=== PATIENT | female | born 1945 | race Caucasian/White ===

== ENCOUNTER 2017-07-02 10:04 | Outpatient (CLI) | payer MEDICARE, OTHER ==
--- NOTE | 2017-07-02 12:53 | RAD ---
EXAM: LUMBAR SPINE 4 VIEWS: HISTORY: Lumbar radiculopathy. Progressively worsening pain and right leg numbness. FINDINGS: There are 5 lumbar-type vertebral bodies. In the neutral position, no significant spondylolisthesis . No abnormal translational motion upon extension or flexion. There are mild degenerative changes of the posterior elements at L4-L5 and L5-S1. Osteophyte formation in the distal thoracic spine is identified. Atherosclerosis of the aorta is noted. IMPRESSION: Degenerative changes of lumbar spine as above. POS: EVERARDO
[2017-07-02] MEDS ORDERED: Gadobenate Dimeglumine 529 MG/1 ML (20ML VIAL) ONE (13:36)
--- NOTE | 2017-07-02 15:00 | MRI ---
EXAM: MRI LUMBAR SPINE WITH AND WITHOUT CONTRAST: HISTORY: Right leg numbness. Progressively worsening the past year. History of previous back surgery. COMPARISON: MRI lumbar spine 03/26/12. TECHNIQUE: MRI lumbar spine is performed with and without intravenous Gadolinium administration. Multisequenti al, multiplanar imaging is performed. FINDINGS: There is appropriate T1 marrow signal intensity of the lumbar vertebrae. Lumbar spine vertebral bod y height is maintained. There is no abnormal enhancement. There is no significant STIR hyperintens ity to suggest vertebral body or ligamentous injury. There is a T2 hyperintensity emanating from the left renal cortex, compatible with a cyst. Remainin g visualized solid organs and retroperitoneal structures are unremarkable. Conus medullaris termina klaus at the superior aspect of L1. On the postcontrast images, there is no abnormal enhancement within the thecal sac. The cauda equin a and conus medullaris have a normal appearance. T12-L1: Adequate disk hydration. No significant central canal stenosis. Neural foramen are patent . L1-L2: Adequate disk hydration. No significant central canal stenosis. Neural foramen are patent. L2-L3: Disk desiccation with mild loss of disk space height. Generalized disk bulge, ligamentum fl avum thickening, and facet hypertrophy result in mild central canal stenosis. Mild to moderate narr owing of the left subarticular zone with partial obscuration of the traversing left L3 nerve root. There appears to be postsurgical change with partial removal of the right facet. There is associate d minimal scar tissue. There is no high-grade stenosis of the thecal sac. Moderate to severe right and mild to moderate left neural foraminal narrowing. L3-L4: Disk desiccation with mild loss of disk space height. Generalized disk bulge, ligamentum fl avum thickening, and facet hypertrophy result in mild central canal stenosis. Moderate narrowing of both subarticular zones due to posterior element hypertrophy and disk material. Partial obscuratio n of bilateral traversing L4 nerve roots. Mild to moderate right and mild left foraminal narrowing. L4-:5: Disk desiccation with mild loss of disk space height. Generalized disk bulge, ligamentum fl avum thickening, and facet hypertrophy result in moderate central canal stenosis. Narrowing of both subarticular zones with partial obscuration of bilateral traversing L5 nerve roots. Moderate right and severe left foraminal narrowing. L5-S1: No significant central canal stenosis. Right neural foramen is patent. Mild to moderate le ft foraminal narrowing. IMPRESSION: 1. Degenerative change of the lumbar spine as above. 2. Postsurgical changes as above. POS: EVERARDO
== END 2017-07-02 10:05 | disposition home or self-care (01) ==
LOC: TBSIIMAG 10:04
PROVIDERS: ATTEND Surgery
DX: M47.26 Other spondylosis with radiculopathy, lumbar region (principal); Z98.890 Other specified postprocedural states
CPT/HCPCS: 72110; 72158; A9579

== ENCOUNTER 2018-03-24 12:11 | Outpatient (CLI) | payer MEDICARE, OTHER | END 2018-03-24 12:12 | disposition home or self-care (01) | LOC: BICMAMMO 12:11 | PROVIDERS: ATTEND Family Medicine | DX: Z12.31 Encounter for screening mammogram for malignant neoplasm of breast (principal) | CPT/HCPCS: 77063; 77067 ==

== ENCOUNTER 2018-09-25 09:17 | Outpatient (CLI) | payer MEDICARE, OTHER ==
--- NOTE | 2018-09-25 11:20 | BD ---
DEXA BONE DENSITOMETRY: (Dual energy X-ray Absorptiometry) DATE: 09/25/18 HISTORY: 73-year-old postmenopausal white female for follow-up age-related osteoporosis screening examination. Height: 63 Weight: 160 lbs Age of menopause: 55 years COMPARISON: 03/06/2016. FINDINGS: Bone mineral density (BMD) is given in grams per square centimeter (g/cm2): LUMBAR SPINE: BMD(g/cm2) T-score Z-score L1: 0.978 -0.1 1.9 L2: 0.995 -0.3 2.0 L3: 1.045 -0.4 2.0 L4: 1.089 0.3 2.7 Total: 1.026 -0.2 2.1 Change in BMD compared to previous DEXA: -6.0% HIP: Femoral neck: 0.515 -3.0 -1.0 Total: 0.724 -1.8 -0.1 Change in BMD compared to previous DEXA: -7.1% IMPRESSION: 1. The mean bone mineral density of the lumbar spine is normal. Fracture risk is not increased. 2. The bone mineral density of the femoral neck is osteoporotic. Fracture risk is high. JN Romulo POS: TPC
== END 2018-09-25 09:18 | disposition home or self-care (01) ==
LOC: BICMAMMO 09:17
PROVIDERS: ATTEND Family Medicine
DX: Z78.0 Asymptomatic menopausal state (principal); M81.0 Age-related osteoporosis without current pathological fracture
CPT/HCPCS: 77080

== ENCOUNTER 2019-02-03 13:39 | Outpatient (CLI) | payer MEDICARE, OTHER ==
[~2019-02-03 13:39] MED LIST: Gadobenate Dimeglumine 529 MG/1 ML (20ML VIAL) ONE
--- NOTE | 2019-02-03 14:24 | RAD ---
EXAM: XR Lumbar Spine Min 4 View PROVIDED CLINICAL HISTORY: Lumbar radiculopathy. Patient with low back pain with pain radiating down right lower extremity with associated numbness. COMPARISON: 07/02/2017 FINDINGS: 5 nonrib-bearing lumbar-type vertebral bodies are again seen. The vertebral body heights are within n ormal limits. No fracture or subluxation is appreciated. Multilevel osteophytes are again seen. No abnormal translational motion is seen between the flexion and extension views lumbar spine. Facet deg enerative changes are present. Vascular calcifications are again seen in the abdominal aorta and iliac arteries. IMPRESSION: Multilevel degenerative changes without fracture visualized. Views of the lumbar spine are stable com pared to study in 2017.
--- NOTE | 2019-02-03 15:24 | MRI ---
MRI lumbar spine with and without contrast: DATE: 02/03/2019 HISTORY: 73-year-old female with lumbar radiculopathy and chronic low back pain. COMPARISON: 07/02/2017 FINDINGS: 5 lumbar-type vertebrae. Vertebral body heights are maintained. No major spondylolisthesis. No major bone marrow signal abnormality. No abnormal, unexpected enhancement.. T12-L1:Minimal disc bulge. Otherwise negative. L1-2:Conus medullaris terminates at this level. Essentially normal. L2-3:Moderate disc space narrowing. Diffuse disc bulge. Superimposed right paracentral small focal di sc herniation. Mild to moderate degenerative facet changes. Right partial facetectomy moderate central spinal canal stenosis. Mild to moderate left neural foraminal stenosis. Nerve root cyst in th e right neural foramen contributes to moderate right neural foraminal stenosis. No interval change. L3-4:Moderate bilateral facet DJD. Moderate disc space narrowing. Prominent diffuse disc bulge. Moder ate bilateral neural foraminal stenosis. Lateral recess stenosis bilaterally. Mild to moderate central stenosis. No major interval change. L4-5:Mild to moderate disc space narrowing. Severe bilateral facet DJD. Prominent diffuse disc bulge. Severe left neural foraminal stenosis with chronic impingement on exiting left L4 nerve root. Mild to moderate right neural foraminal stenosis. Severe lateral recess stenosis bilaterally, left greater than right. Moderate ligamentum flavum thickening. Superimposed on the diffuse prominent disc bulge, there was previously a prominent central component of disc bulge or disc herniation. That cent ral component has regressed, resulting in interval improvement in the degree of central spinal canal stenosis, now moderate. L5-S1:Mild disc space narrowing. Minimal grade 1 anterolisthesis of L5 on S1. Mild disc bulge. No kathy tral stenosis. No right neural foraminal stenosis. Moderate left neural foraminal stenosis with the formation of exiting left L5 nerve root. Severe left facet DJD and moderate right facet DJD. No inter sia change. IMPRESSION: 1) lumbar spondylosis with facet osteoarthrosis of varying degrees, including severe, and degenerativ e disc disease of varying degrees, including moderate. 2) the lateral interval change since 07/02/2017 is the fact that the central component of disc bulge or disc herniation at L4-5 has regressed, resulting in interval improvement in the previously demonstrated high-grade central spinal canal stenosis at that level. 3) however, the severe lateral recess stenosis bilaterally, and severe left neural foraminal stenosis , remain unchanged at the L4-5 level. 4) lateral recess stenosis bilaterally at L3-4.
== END 2019-02-03 13:40 | disposition home or self-care (01) ==
LOC: SCSMRI 13:39
PROVIDERS: ATTEND Physician Assistant Surgical
DX: M47.26 Other spondylosis with radiculopathy, lumbar region (principal); M51.16 Intervertebral disc disorders with radiculopathy, lumbar region; M48.061 Spinal stenosis, lumbar region without neurogenic claudication
CPT/HCPCS: 72110; 72158; 82565; A9577

== ENCOUNTER 2019-02-24 00:46 | Outpatient (CLI) | payer MEDICARE, OTHER ==
[2019-02-24 13:38] LABS: PTT 28.2 SEC (22.9-36.1); Prothrombin Time 13.1 SEC (12.0-14.7)
[2019-02-24 14:00] LABS: Band 2 % (5-11); Hemoglobin 14.7 g/dL (12.0-16.0); Lymphocytes 32 % (21-51); MDiff Complete? YES; Mean Corpuscular HGB CONC 33.6 g/dL (32.0-36.0); Mean Corpuscular Hemoglobin 32.3 pg (27.0-31.0); Mean Corpuscular Volume 96.1 fL (78.0-98.0); Mean Platelet Volume 8.4 fL (7.4-10.4); Monocytes 9 % (0-10); Neutrophil 57 % (42-75); Platelet Count 189 thou/uL (130-400); RBC Distribution Width 12.3 % (11.5-14.5); RBC Morphology Normal; Red Blood Cell (RBC) Count 4.55 mill/uL (4.20-5.40); White Blood Cell (WBC) Count 7.2 thou/uL (4.8-10.8)
--- NOTE | 2019-02-26 21:17 | EKG ---
Test Reason : Blood Pressure : / mmHG Vent. Rate : 050 BPM Atrial Rate : 050 BPM P-R Int : 220 ms QRS Dur : 084 ms QT Int : 474 ms P-R-T Axes : 074 052 045 degrees QTc Int : 432 ms Sinus bradycardia with 1st degree A-V block Low voltage QRS Nonspecific ST and T wave abnormality Abnormal ECG When compared with ECG of 22-MAY-2016 10:00, NE interval has increased Nonspecific T wave abnormality, improved in Inferior leads Nonspecific T wave abnormality, improved in Lateral leads Confirmed by Heraclio ACOSTA ([id number]) on 02/26/2019 9:16:39 PM Referred By: NANCY Confirmed By:Heraclio ACOSTA
== END 2019-02-24 00:47 | disposition home or self-care (01) ==
LOC: LABBT 00:46
PROVIDERS: ATTEND Surgery
DX: Z01.818 Encounter for other preprocedural examination (principal); M54.16 Radiculopathy, lumbar region; M48.061 Spinal stenosis, lumbar region without neurogenic claudication
CPT/HCPCS: 85007; 85027; 85610; 85730; 93005; 93010

== ENCOUNTER 2019-03-02 05:39 | Day surgery (SDC) | payer MEDICARE, OTHER ==
[2019-02-24 12:48] VITALS: BMI 27.6
[2019-03-02] MEDS ORDERED: Sodium Chloride 0.9% 10 ML ONE (06:28)
[2019-03-02] MEDS ORDERED: Thrombin 5000 UNITS/5 ML VIAL ONE (06:28)
[2019-03-02] MEDS ORDERED: Fentanyl 100 MCG/2 ML VIAL ONE ×4 (06:54→11:30)
[2019-03-02] MEDS ORDERED: HYDROmorphone 2 MG/ML VIAL SLOW IVP PRN (09:24)
[2019-03-02] MEDS ORDERED: Ondansetron HCl/PF 4 MG/2 ML Vial IVP PRN (09:24)
[2019-03-02] MEDS ORDERED: Meperidine HCl/PF 25 MG/ML VIAL SLOW IVP PRN (09:24)
[2019-03-02] MEDS ORDERED: Morphine Sulfate 2 MG/ML SYRINGE SLOW IVP PRN (09:24)
[2019-03-02] MEDS ORDERED: Promethazine HCl 25 MG/ML VIAL IM PRN (09:24)
[2019-03-02] MEDS ORDERED: PACU-Morphine 4MG/ML VIAL SLOW IVP PRN (09:24)
[2019-03-02] MEDS ORDERED: Promethazine HCl 25 MG/ML VIAL SLOW IVP PRN (09:24)
[2019-03-02] MEDS ORDERED: Acetaminophen 325 MG TAB PO PRN (10:33)
[2019-03-02] MEDS ORDERED: Bisacodyl 10 MG SUPP PR PRN (10:33)
[2019-03-02] MEDS ORDERED: Acetaminophen/Codeine 30-300mg Tablet PO PRN (10:33)
[2019-03-02] MEDS ORDERED: Promethazine HCl 25 MG/ML VIAL IM/IV PRN (10:33)
[2019-03-02] MEDS ORDERED: Fleet Enema 133 ML BOT PR PRN (10:33)
[2019-03-02] MEDS ORDERED: Mag-Al 1200 mg/1200 mg/30 ML UDCUP PO PRN (10:33)
[2019-03-02] MEDS ORDERED: Milk Of Magnesia 30 ML UDCUP PO PRN (10:33)
[2019-03-02] MEDS ORDERED: HYDROcodone/Acetaminophen 7.5/325 mg Tablet PO PRN (10:33)
[2019-03-02] MEDS ORDERED: CEFAZOLIN 2 GM in Premix Bag 1 BAG IVPB SCH (10:45)
--- NOTE | 2019-03-02 12:12 | OP ---
DATE OF PROCEDURE: 03/02/2019 LOCATION: OR 12. WOUND CLASSIFICATION: Type 1 wound. DIRECTOR EMERGENCY SERVICES: Shannan. PREPROCEDURE DIAGNOSES: Lumbar stenosis, low back and leg pain. POSTPROCEDURE DIAGNOSES: Lumbar stenosis, low back and leg pain. PROCEDURES PERFORMED: L3-L4, L4-L5 laminectomies, partial facetectomies, and foraminotomies. DESCRIPTION OF PROCEDURE: After informed consent was obtained from the patient, the patient was brought to the OR. Proper patient, pause, and identification were carried out. She was placed under excellent general endotracheal anesthesia and positioned prone on the OR table. All appropriate points were padded. We identified the L3, L4, L5 dorsal spines and lamina. This region was sterilely cleansed, prepared, and draped. Proper patient, pause, and identification were carried out. The wound was then opened with combination of sharp, monopolar, and blunt dissection. The L3, L4, L5 dorsal spines and lamina were exposed. Localization film confirmed our area of interest. We then performed L3, L4, L5 laminectomies, partial facetectomies, and foraminotomies over the L3, L4, L5 nerve roots with excellent decompression of the common dural tube. There was no spinal fluid leak. Hemostasis was maximized throughout. The wound was closed in anatomic layers following sprinkling of vancomycin powder. The patient was emerged from anesthesia. Job ID: [id number]
[2019-03-02] MEDS: Sodium Chloride 0.9% 1,000 ML IV SCH (12:54)
[2019-03-02] MEDS: traMADol HCl 50 MG TAB PO PRN ×2 (13:05→20:53)
[2019-03-02] MEDS ORDERED: Lidocaine 1% PF 5 ML VIAL ONE (14:42)
[2019-03-02] MEDS ORDERED: ePHEDrine 50 MG/ML VIAL ONE (14:42)
[2019-03-02] MEDS ORDERED: Dexamethasone 20 MG/5 ML VIAL ONE (14:42)
[2019-03-02] MEDS ORDERED: Rocuronium Bromide 10 MG/ML (10ML VIAL) ONE (14:42)
[2019-03-02] MEDS ORDERED: Glycopyrrolate 0.2 MG/ML 5 ML SYRINGE ONE (14:42)
[2019-03-02] MEDS ORDERED: Ondansetron PF 4 MG/2 ML Vial ONE (14:42)
[2019-03-02] MEDS ORDERED: PROPOFOL 200 MG/20 ML VIAL ONE (14:42)
[2019-03-02] MEDS: CEFAZOLIN 2 GM in Premix Bag 1 BAG IVPB SCH ×2 (14:49→23:40)
[2019-03-02] MEDS: tiZANidine HCl 4 MG TAB PO PRN (16:47)
[2019-03-02] MEDS: Gabapentin 300 MG CAP PO SCH (20:52)
[2019-03-02] MEDS ORDERED: Donepezil HCl 10 MG TAB PO SCH (21:00)
[2019-03-02] MEDS ORDERED: Temazepam 15 MG CAP PO PRN (21:00)
[2019-03-02] MEDS ORDERED: Topiramate 25 MG TAB PO SCH (21:00)
[2019-03-03] MEDS: Sodium Chloride 0.9% 1,000 ML IV SCH (01:08)
[2019-03-03] MEDS: tiZANidine HCl 4 MG TAB PO PRN (01:14)
[2019-03-03 08:03] VITALS: BP 125/70; TEMP 99
[2019-03-03] MEDS: Gabapentin 300 MG CAP PO SCH (08:35)
[2019-03-03] MEDS: traMADol HCl 50 MG TAB PO PRN (08:35)
[2019-03-03] MEDS ORDERED: Loratadine 10 MG TAB PO SCH (09:00)
--- NOTE | 2019-03-03 09:42 | PRG ---
DATE OF SERVICE: 03/03/2019 SUBJECTIVE: Ms. Reinoso is postoperative day #1 from multilevel lumbar laminectomy. She is doing well with improvement in her leg pain. She would like to go home today. Her exam demonstrates excellent strength and very pleased with outcome. Job ID: [id number]
== END 2019-03-03 11:35 | disposition home or self-care (01) ==
LOC: SDC 05:39 → SURG A 10:33 → SDC 03-03 11:35
PROVIDERS: ATTEND Surgery
PROC: 01NB0ZZ Release Lumbar Nerve, Open Approach (ICD-10-PCS; principal; 2019-03-02)
DX: M48.061 Spinal stenosis, lumbar region without neurogenic claudication (principal); M54.16 Radiculopathy, lumbar region
CPT/HCPCS: 76000; J0131; J0690; J1100; J2001; J2405; J2704; J3010; J3370; J3490

== ENCOUNTER 2019-03-08 11:38 | Emergency (ER) | payer MEDICARE, OTHER ==
[2019-03-08 12:39] LABS: #Basophils 0.1 thou/uL (0.0-0.2); #Eosinphils 0.3 thou/uL (0.0-0.7); #Lymphocytes 2.2 thou/uL (1.20-3.40); %Basophils 0.9 % (0.0-1.0); %Eosinophils 3.3 % (0.0-10.0); %Monocytes 11.1 % (0.0-10.0); %Neutrophils 58.7 % (42.0-75.0); Hemoglobin 13.1 g/dL (12.0-16.0); Mean Corpuscular Hemoglobin 30.8 pg (27.0-31.0); Mean Corpuscular Volume 96.2 fL (78.0-98.0); Mean Platelet Volume 7.8 fL (7.4-10.4); Platelet Count 233 thou/uL (130-400); RBC Distribution Width 12.1 % (11.5-14.5); Red Blood Cell (RBC) Count 4.26 mill/uL (4.20-5.40); White Blood Cell (WBC) Count 8.6 thou/uL (4.8-10.8)
[2019-03-08 12:40] LABS: Bilirubin Negative (Negative); Blood, Urine Negative (Negative); Clarity CLEAR (Clear); Glucose, Urine (Dipstick) Negative (Negative); Leukocyte Negative (Negative); Nitrite Negative (Negative); Protein, Urine (Dipstick) Negative (Neg-Trace); Specific Gravity, Urine 1.008 (1.002-1.036)
--- NOTE | 2019-03-08 12:56 | RAD ---
XR Chest 1 View Portable History: Lower extremity edema Comparison: None. Findings: Heart size mildly enlarged. Mild pulmonary venous congestion. No pneumothorax. No effusion. No acute osseous abnormality. Impression: Cardiomegaly and mild pulmonary venous congestion.
[2019-03-08 13:02] LABS: ALT (SGPT) 17 U/L (8-55); AST (SGOT) 14 U/L (5-34); Albumin 4.1 g/dL (3.4-4.8); Alkaline Phosphatase 90 U/L (40-150); Anion Gap 12 mmol/L (10-20); BUN (Urea Nitrogen) 14 mg/dL (9.8-20.1); Bilirubin, Total 0.4 mg/dL (0.2-1.2); Calc. Creatinine Clearance 0 mL/min (70-130); Calcium 9.3 mg/dL (7.8-10.44); Carbon Dioxide 27 mmol/L (23-31); Chloride 105 mmol/L (98-107); Estimated GFR-MDRD 68; Globulin 2.9 g/dL (2.4-3.5); Glucose 91 mg/dL (83-110); Potassium 4.4 mmol/L (3.5-5.1); Sodium 140 mmol/L (136-145)
--- NOTE | 2019-03-08 14:57 | ULT ---
EXAM: Right lower extremity venous Doppler HISTORY: Right lower extremity edema. History of back surgery. FINDINGS: Grayscale, color-flow, Doppler evaluation, spectral analysis of the right lower extremity venous stru ctures is performed with 2-D imaging. The right common femoral, superficial femoral, popliteal, posterior tibial, proximal greater saphenous and profunda femoral veins are imaged. There is normal luminal compressibility, flow, and augmentation in the visualized deep venous structu res of the right lower extremity. There is pulsatility of venous flow in the bilateral lower extremities which is overall nonspecific. This can be seen with right heart failure or secondary to v ariability in venous hemodynamics. IMPRESSION: No evidence of a deep vein thrombosis in the visualized deep venous structures right lower extremity.
[2019-03-08] MEDS ORDERED: Furosemide 40 MG TAB ONE (15:04)
--- NOTE | 2019-03-12 09:38 | EKG ---
Test Reason : Blood Pressure : / mmHG Vent. Rate : 052 BPM Atrial Rate : 052 BPM P-R Int : 226 ms QRS Dur : 084 ms QT Int : 430 ms P-R-T Axes : 079 002 025 degrees QTc Int : 399 ms Sinus bradycardia with 1st degree A-V block with occasional Premature ventricular complexes and Jovita ture atrial complexes Low voltage QRS Borderline ECG Confirmed by CAMILA MAJANO ([id number]), supervising film or videotape editor CLARE BRODERICK ([id number]) on 03/12/2019 9:38:26 AM Referred By: Confirmed By:CAMILA MAJANO
== END 2019-03-08 15:41 | disposition home or self-care (01) ==
LOC: ERS 11:38
DX: R60.0 Localized edema (principal); I10 Essential (primary) hypertension; E11.9 Type 2 diabetes mellitus without complications; I48.91 Unspecified atrial fibrillation; Z79.899 Other long term (current) drug therapy
CPT/HCPCS: 36415; 71045; 80053; 81003; 83880; 84484; 85025; 93005; 94760

== ENCOUNTER 2019-08-18 14:30 | Outpatient (CLI) | payer MEDICARE, OTHER ==
--- NOTE | 2019-08-18 16:57 | MRI ---
MRI LUMBAR SPINE WITH AND WITHOUT CONTRAST: 08/18/2019 HISTORY: Multiple lumbar spine surgeries in the past. Lumbar radiculopathy with progressive right lower extrem ity pain. COMPARISON: 02/03/2019 TECHNIQUE: Multiplanar, multisequence MR imaging of the lumbar spine is obtained with and without contrast. FINDINGS: The sagittal STIR imaging demonstrates increased signal intensity on the basis of postoperative hooper e involving the midline soft tissues dorsal to the thecal sac at the L4 and L5 levels, consistent wit h prior bilateral laminectomy. This is a new finding when compared to the 02/03/2019 examination. On the basis of five lumbar type vertebral bodies the conus medullaris terminates at the L1 level. T12-L1: Mild bilateral facet hypertrophy. Mild disk space narrowing and disk bulge with no central ca nal or neural foraminal stenosis. Right sided anterior osteophyte formation noted. L1-L2: Mild bilateral facet hypertrophy. Minimal disk bulge and mild disk space narrowing. No central canal or neural foraminal stenosis. L2-L3: There is disk space narrowing and degenerative endplate change with bilateral facet hypertroph y as well as anterior osteophyte formation and a posterior disk osteophyte complex. There is a small foraminal and paracentral disk protrusion on the right. Central canal stenosis is mild. There is mild right neural foraminal stenosis. No significant left neural foraminal stenosis. L3-L4: Disk space narrowing and disk desiccation with mild disk bulge. Bilateral facet hypertrophy. N o central canal stenosis. Mild bilateral neural foraminal stenosis, right greater than left. L4-L5: There is disk space narrowing and disk desiccation with mild disk bulge. No central canal sten osis. Bilateral facet hypertrophy with moderate/severe left neural foraminal stenosis and a mild degr ee of right neural foraminal stenosis. L5-S1: Bilateral facet hypertrophy. There is disk space narrowing and disk desiccation. There is mode rate left neural foraminal stenosis. No significant central canal or right neural foraminal stenosis. There is a small postoperative fluid collection dorsal to the thecal sac, measuring 1.3 cm in transve rse dimension at the axial level of the L4 vertebral body. The surrounding soft tissues demonstrate p rominent enhancement, suggesting postoperative scar, dorsal to the thecal sac at the L4 and L5 verteb ral levels, including scar within the medial lower posterior paraspinal musculature at the L5-S1 leve l. The post contrast imaging demonstrates no abnormal enhancement involving the contents of the thecal s ac. No abnormal enhancement is seen involving the intervertebral disks or the osseous structures. The manisha ged retroperitoneal structures demonstrate an incompletely imaged T2 hyperintense left renal lesion, measuring up to 6 cm. The visualized components demonstrate Hounsfield units consistent with a cyst. IMPRESSION: Postoperative and degenerative change noted within the lumbar spine as detailed above. POS: OFF
--- NOTE | 2019-08-18 17:08 | RAD ---
LUMBAR SPINE: 08/18/19 Four views. HISTORY: Radiculopathy. Lumbar vertebrae maintain height and alignment. Degenerative osteophytes are prominent in the lower t horacic and upper lumbar spine. Mild degenerative osteophytes in the mid and lower lumbar spine. Loss of disc space height at all levels of the lumbar spine. Facet hypertrophy. Mild anterolisthesis at L4-5 which appears to correct with extension. IMPRESSION: Moderate degenerative changes as described. POS: Ly
== END 2019-08-18 14:31 | disposition home or self-care (01) ==
LOC: TBSIIMAG 14:30
PROVIDERS: ATTEND Neurological Surgery
DX: M48.061 Spinal stenosis, lumbar region without neurogenic claudication (principal); M54.5 Low back pain; M47.26 Other spondylosis with radiculopathy, lumbar region; Z98.890 Other specified postprocedural states
CPT/HCPCS: 72110; 72158; 82565

== ENCOUNTER 2019-11-02 10:58 | Outpatient (CLI) | payer MEDICARE, OTHER ==
--- NOTE | 2019-11-02 14:41 | MMO ---
Bilateral MAMMO Bilat Screen [facility]. CLINICAL HISTORY: Patient is 74 years old and is seen for screening. The patient has no family history of breast cancer. The patient has no personal history of cancer. VIEWS: The views performed were: bilateral craniocaudal with tomosynthesis and bilateral mediolateral oblique with tomosynthesis. FILMS COMPARED: The present examination has been compared to prior imaging studies performed at [facility] on 04/10/2012, 06/08/2013, 10/05/2015 and 03/24/2018. This study has been interpreted with the assistance of computer-aided detection. MAMMOGRAM FINDINGS: There are scattered fibroglandular densities. Right breast: There are benign appearing calcifications in the right breast. Round asymmetry only seen MLO. Left breast: There are no suspicious masses, calcifications or areas of architectural distortion. There are benign appearing calcifications in the left breast. In the left breast, there are no suspicious masses, calcifications or areas of architectural distortion. IMPRESSION: FINDING IN THE RIGHT BREAST REQUIRES ADDITIONAL EVALUATION. ADDITIONAL PROJECTIONS (RIGHT MEDIOLATERAL OBLIQUE SPOT COMPRESSION AND RIGHT MEDIOLATERAL) ARE RECOMMENDED. AN ULTRASOUND EXAM IS RECOMMENDED. THE RESULTS OF THIS EXAM WERE SENT TO THE PATIENT. ACR BI-RADS Category 0 - Incomplete: Need additional imaging evaluation. [facility] will notify the patient of the need for additional imaging services. MAMMOGRAPHY NOTE: 1. A negative mammogram report should not delay a biopsy if a dominant of clinically suspicious mass is present. 2. Approximately 10% to 15% of breast cancers are not detected by mammography. 3. Adenosis and dense breasts may obscure an underlying neoplasm. Reported by: MARILYN LEE MD Electonically Signed: [id number]
== END 2019-11-02 10:59 | disposition home or self-care (01) ==
LOC: BICMAMMO 10:58
PROVIDERS: ATTEND Family Medicine
DX: Z12.31 Encounter for screening mammogram for malignant neoplasm of breast (principal)
CPT/HCPCS: 77063; 77067

== ENCOUNTER 2019-11-08 13:18 | Outpatient (CLI) | payer MEDICARE, OTHER ==
--- NOTE | 2019-11-08 14:30 | MMO ---
Right Breast MAMMO Unilat Diag DDI RT+JOHN. CLINICAL HISTORY: Patient is 74 years old and is seen for additional evaluation requested at current screening. The patient has no family history of breast cancer. The patient has no personal history of cancer. VIEWS: The views performed were: right mediolateral oblique spot compression with tomosynthesis and right mediolateral with tomosynthesis. FILMS COMPARED: The present examination has been compared to prior imaging studies performed at [facility] on 10/05/2015, 03/24/2018, 11/02/2019 and 11/08/2019. This study has been interpreted with the assistance of computer-aided detection. MAMMOGRAM FINDINGS: There are scattered fibroglandular densities. There is a 6 mm mass with circumscribed margins seen in the right breast at 9 o'clock. Patient was not interested in biopsy at this time and more comfortable with a 6 month followup. IMPRESSION: MASS IN THE RIGHT BREAST IS PROBABLY BENIGN. FOLLOW-UP IN 6 MONTHS IS RECOMMENDED. THE RESULTS OF THIS EXAM WERE SENT TO THE PATIENT. ACR BI-RADS Category 3 - Probably benign finding - short interval follow-up suggested. [facility] will notify the patient of the need for additional imaging services. MAMMOGRAPHY NOTE: 1. A negative mammogram report should not delay a biopsy if a dominant of clinically suspicious mass is present. 2. Approximately 10% to 15% of breast cancers are not detected by mammography. 3. Adenosis and dense breasts may obscure an underlying neoplasm. Reported by: Rebeka MEYER Electonically Signed: [id number]
--- NOTE | 2019-11-08 14:51 | ULT ---
ULTRASOUND RIGHT BREAST: HISTORY: Breast mass. COMPARISON: Mammogram of same day. Multiple prior mammograms, the most recent 11/02/2019. FINDINGS: Corresponding to the mass in the right breast at 9:00 2 cm from the nipple is a hypoechoic wider than tall well-defined 7 mm mass which has sharp margins. NO peripheral spiculation. There are adjacent clusters of microcysts. IMPRESSION: 1. BIRADS category 3: Likely benign. A followup ultrasound and mammogram in 6 months is recommended . 2. The patient was not interested in performing a biopsy and would rather go forth with a 6-month fo llowup at this time due to recent surgeries. POS: OFF
== END 2019-11-08 13:19 | disposition home or self-care (01) ==
LOC: BICMAMMO 13:18
PROVIDERS: ATTEND Family Medicine
DX: R92.2 Inconclusive mammogram (principal); N63.10 Unspecified lump in the right breast, unspecified quadrant
CPT/HCPCS: 76642; 77065; G0279

== ENCOUNTER 2020-03-07 15:08 | Emergency (ER) | payer MEDICARE, OTHER ==
[2020-03-07 16:10] LABS: #Basophils 0.1 thou/uL (0.0-0.2); #Neutrophils 6.4 thou/uL (1.40-6.50); %Basophils 0.9 % (0.0-1.0); %Eosinophils 0.3 % (0.0-10.0); %Lymphocytes 20.9 % (21.0-51.0); %Monocytes 10.1 % (0.0-10.0); %Neutrophils 67.8 % (42.0-75.0); Hemoglobin 15.6 g/dL (12.0-16.0); Mean Corpuscular HGB CONC 33.3 g/dL (32.0-36.0); Mean Corpuscular Hemoglobin 30.6 pg (27.0-31.0); Mean Corpuscular Volume 91.8 fL (78.0-98.0); Mean Platelet Volume 8.4 fL (7.4-10.4); Platelet Count 221 thou/uL (130-400); RBC Distribution Width 12.2 % (11.5-14.5); Red Blood Cell (RBC) Count 5.09 mill/uL (4.20-5.40); White Blood Cell (WBC) Count 9.5 thou/uL (4.8-10.8)
[2020-03-07 16:38] LABS: ALT (SGPT) 18 U/L (8-55); AST (SGOT) 20 U/L (5-34); Albumin 4.2 g/dL (3.4-4.8); Alkaline Phosphatase 82 U/L (40-110); BUN (Urea Nitrogen) 29 mg/dL (9.8-20.1); Bilirubin, Total 0.7 mg/dL (0.2-1.2); Calc. Creatinine Clearance 0 mL/min (70-130); Calcium 9.1 mg/dL (7.8-10.44); Estimated GFR-MDRD 37; Globulin 2.7 g/dL (2.4-3.5); Glucose 177 mg/dL (83-110); Lipase 43 U/L (8-78); Protein, Total 6.9 g/dL (6.0-8.3)
[2020-03-07 16:39] LABS: Bilirubin Negative (Negative); Blood, Urine Negative (Negative); Clarity Turbid (Clear); Glucose, Urine (Dipstick) >=1000 mg/dL (Negative); Leukocyte 500 Leu/uL (Negative); Nitrite Negative (Negative); Protein, Urine (Dipstick) 30 mg/dL (Neg-Trace); WBC/HPF Greater than 50 HPF (0-3)
[2020-03-07 16:47] LABS: Anion Gap 20 mmol/L (10-20); Carbon Dioxide 36 mmol/L (23-31); Chloride 86 mmol/L (98-107); Sodium 139 mmol/L (136-145)
[2020-03-07 16:48] LABS: Bacteria/HPF 2+ HPF (None Seen)
[2020-03-07 16:51] LABS: Potassium 2.5 mmol/L (3.5-5.1)
[2020-03-07] MEDS ORDERED: Potassium Chloride 20 MEQ TAB ONE (17:45)
[2020-03-07] MEDS ORDERED: cefTRIAXone\\ROCEPHIN 2 GM VIAL ONE (17:47)
[2020-03-07] MEDS ORDERED: NS 0.9% w/ 20 MEQ KCL 1,000 ML IV SCH (18:15)
--- NOTE | 2020-03-11 16:56 | EKG ---
Test Reason : ERMD REQUEST Blood Pressure : / mmHG Vent. Rate : 063 BPM Atrial Rate : 063 BPM P-R Int : 206 ms QRS Dur : 096 ms QT Int : 486 ms P-R-T Axes : 107 009 079 degrees QTc Int : 497 ms Normal sinus rhythm Prolonged QT Abnormal ECG Confirmed by PIPO HURD M.D. ([id number]), magazine editor CLARE BRODERICK ([id number]) on 03/11/2020 4:56:20 PM Referred By: Confirmed By:PIPO HURD M.D.
== END 2020-03-07 20:25 | disposition home or self-care (01) ==
LOC: ERS 15:08
DX: N30.00 Acute cystitis without hematuria (principal); E11.9 Type 2 diabetes mellitus without complications; I10 Essential (primary) hypertension; I48.91 Unspecified atrial fibrillation; Z79.899 Other long term (current) drug therapy
CPT/HCPCS: 36415; 80053; 81003; 81015; 83690; 84484; 85025; 87077; 87086; 87186; 93005; 96361; 96365; 96367; J0696; J3480

== ENCOUNTER 2021-08-30 12:39 | Outpatient (CLI) | payer MEDICARE, OTHER | END 2021-08-30 12:40 | disposition home or self-care (01) | LOC: TBSIIMAG 12:39 | PROVIDERS: ATTEND Surgery | DX: M47.26 Other spondylosis with radiculopathy, lumbar region (principal); Z98.890 Other specified postprocedural states; M48.061 Spinal stenosis, lumbar region without neurogenic claudication | CPT/HCPCS: 72110; 72148 ==

== ENCOUNTER 2025-09-12 10:51 | Outpatient (CLI) | payer OTHER | END 2025-09-12 10:52 | disposition home or self-care (01) | LOC: SCSMRI 10:51 | PROVIDERS: ATTEND Family Medicine | DX: M47.26 Other spondylosis with radiculopathy, lumbar region (principal); M47.27 Other spondylosis with radiculopathy, lumbosacral region | CPT/HCPCS: 72148 ==